=== PATIENT | male | born 1965 | race African-American/Black ===

== ENCOUNTER 2019-03-10 17:06 | Emergency (ER) | payer BC, SELFPAY ==
--- NOTE | ~2019-03-10 | XR_ITS ---
EXAMINATION: XR tibia fibula RT 2V INDICATION: Pain after fall TECHNIQUE: Two views of the right tibia and fibula are obtained on four radiographs. COMPARISON: None available FINDINGS: There is no fracture, dislocation, or subluxation. The bones and joint spaces are normal. T here is soft tissue swelling anterior to the proximal tibial shaft. IMPRESSION: 1. Anterior soft tissue swelling without acute osseous abnormality. Reviewed, dictated and finalized at location A. [employer] PR[employer]PECTING OBSERVER
--- NOTE | ~2019-03-10 | XR_ITS ---
EXAMINATION: XR hand RT min 3V DATE: 03/10/2019 18:04 INDICATION: Right hand pain after fall TECHNIQUE: Posteroanterior, lateral, and oblique views of the right hand were obtained. COMPARISON: None. FINDINGS: There is a questionable oblique lucency of the scaphoid with adjacent soft tissue swelling. The visualized osseous structures are otherwise unremarkable. The joint spaces are maintained. IMPRESSION: 1. Possible scaphoid fracture. Dedicated wrist radiographs are recommended. Reviewed, dictated and finalized at location A. LATORY LEADER
--- NOTE | ~2019-03-10 | XR_ITS ---
EXAMINATION: XR wrist RT min 3V EXAM DATE: 03/10/2019 18:31 INDICATION: Initial encounter following injury, with pain of the right wrist. Abnormal hand x-ray. TECHNIQUE: Right wrist frontal, frontal with ulnar deviation, oblique and lateral projections obtain ed and reviewed. Correlation is made to hand x-ray same date. FINDINGS: Right wrist scapholunate joint space is maintained. Suspicion of acute nondisplaced scapho id waist fracture, check for staph box tenderness. This would be a closed posttraumatic type injury. Also suspicion of swelling overlying the wrist, please clinically correlate. IMPRESSION: Probable acute nondisplaced right scaphoid waist fracture. Reviewed, dictated and finalized at location A. RIDGE LOADER
[2019-03-10 17:21] VITALS: BP 210/114; PULSE 84; RESP 16; TEMP 36.6; O2SAT 100
[2019-03-10 17:50] VITALS: BP 190/110
[2019-03-10] MEDS: TETANUS,DIPHTHERIA,AC PERTUSSIS ADULT 0.5 ML (ADACEL) IM (18:21)
--- NOTE | 2019-03-10 19:09 | ED.GENADULT ---
HPI - General Adult General Chief complaint: Extremity Injury, Upper Stated complaint: Fall hand/wrist pain Time Seen by Provider: 03/10/19 17:34 Source: patient and RN notes reviewed Mode of arrival: ambulatory Limitations: no limitations History of Present Illness HPI narrative: 53 yo male presents for evaluation of injury sustained from falling off a 6-8 ft ladder and then landing on a central airconditioning unit below. This happened earlier today. He is reporting pain and swelling to R wrist and hand, R lower leg. He denies hitting his head. He denies any LOC or condition. Denies any headache or back pain or abdominal pain. He is ambulatory. No blood in urine or stool. No prior injuries to R hand, wrist, leg. Reports he was told he has HTN but has is not on any medication. Related Data Home Medications Medication Instructions Recorded Confirmed No Home Medications 03/10/19 03/10/19 Allergies Allergy/AdvReac Type Severity Reaction Status Date / Time No Known Allergies Allergy Unverified 03/29/14 16:19 Review of Systems Review of Systems: Narrative: CONSTITUTIONAL: Denies fever, chills, weight loss, or sweats. EYES: Denies visual changes, redness, or discharge. CARDIOVASCULAR: Denies chest pain, palpitations, or edema. RESPIRATORY: Denies cough or dyspnea. GASTROINTESTINAL: Denies abdominal pain, nausea, vomiting, or diarrhea. GENITOURINARY: Denies dysuria, hematuria, urinary frequency, malordous urine SKIN: Denies rash or itching. MUSCULOSKELETAL: Reports swelling and pain to R hand, R wrist, R lower leg NEUROLOGIC: Denies headache, numbness, or weakness. [facility] Past Medical History Medical History (Updated 05/01/19 @ 20:25 by Yudith Tang NP) Fracture of scaphoid of right wrist (03/10/19) Comments At the time of my signature, I agree with nursing past medical, surgical, social and family history. There is no relevant family history pertinent to the presenting complaint. Exam Narrative: Exam Narrative: GENERAL: No distress, well appearing, well nourished, alert and calm HEAD: Normocephalic, atraumatic. EYES: Pupils equal, round reactive to light. Extraocular movements intact. Conjunctivae without redness or drainage. EARS: Tympanic membranes without erythema. TM landmarks intact with good light reflex. Ear canals without discharge. NOSE: Nares patent. No nasal discharge MOUTH: Mucous membranes moist. No lesions. No cyanosis. Dentition grossly normal. NECK: Supple. No lymphadenopathy. RESPIRATORY: Airway patent. Chest clear to auscultation bilaterally. Breath sounds equal bilaterally. No retractions. CARDIOVASCULAR: Regular rate and rhythm. No murmurs, rubs, gallops, or clicks. Capillary refill <2 seconds. GASTROINTESTINAL: Soft, nontender, non-distended. Bowel sounds normoactive. No masses. No organomegaly. No CVA tenderness MUSCULOSKELETAL: No C Spine, thoracic, or lumbar pain to palpation noted on exam. No step offs or deformities noted. No surface injury, bruising, or swelling observed to vertebral column. Patient has large swelling to R thenar emenance and wrist, limited ROM of thumb and wrist. Goose egg like hematoma noted to mid right lower anterior leg, tender to touch. Ambulates with normal gait. Normal movement in arms and legs. Strength grossly normal except R wrist and hand. SKIN: Color normal. Warm and dry. No rashes. NEURO: Alert and oriented x4. Cranial nerves 2-12 grossly intact. Motor intact in all extremities. Muscle tone normal. PSYCHIATRIC: Responds appropriately to providers. Course Course Emergency Course: Patient stable at this time with no neurological deficets/symptoms.. Repeated BP while doing exam. Repeated manual BP 190/110. Obtained xray images Vital Signs Vital signs: Vital Signs Temperature 97.9 F 03/10/19 17:21 Pulse Rate 84 03/10/19 17:21 Respiratory Rate 16 03/10/19 17:21 Blood Pressure 210/114 H 03/10/19 17:21 Pulse Oximetry 100 03/10/19 17:21
== END 2019-03-10 19:20 | disposition home or self-care (01) ==
PROVIDERS: Emergency Provider Nurse Practitioner
DX: S62.001A Unspecified fracture of navicular [scaphoid] bone of right wrist, initial encounter for closed fracture (principal); W11.XXXA Fall on and from ladder, initial encounter; S89.92XA Unspecified injury of left lower leg, initial encounter; I10 Essential (primary) hypertension; Z23 Encounter for immunization
CPT/HCPCS: 29125; 73110; 73130; 73590; 90471; 90715; 99204; A4565; G0463